=== PATIENT | female | born 1950 | race Hispanic/Latino ===

== ENCOUNTER 2016-07-03 12:52 | Emergency (ER) | payer OTHER, MEDICARE ==
[~2016-07-03] VITALS: Ht 162.6 cm; Wt 73.9 kg
[2016-07-03 13:15] VITALS: BP 108/69
--- NOTE | 2016-07-03 13:24 | ED UPPER/LOWER EXTREMITY COMPL ---
History of Present Illness General Chief Complaint: Lower Extremity Problems Stated Complaint: RIGHT KNEE PAIN, NKI Source: patient Exam Limitations: no limitations Vital Signs & Intake/Output Vital Signs & Intake/Output Vital Signs Date Time Temp Pulse Resp B/P Pulse O2 O2 Flow FiO2 Ox Delivery Rate 07/03 1433 99.6 07/03 1315 99.6 74 18 108/69 99 Room Air Allergies Coded Allergies: No Known Allergies (07/03/16) Reconcile Medications Naproxen 375 MG TABLET 1 TAB PO BID PRN PAIN with food Triage Note: RECEIVED 66 YO FEMALE C/O RIGHT KNEE PAIN, STARTED MONDAY GETTING OUT OF THE CAR. PAIN INCREASES WITH WEIGHT BEARING. PT ABLE TO WEIGHT BEAR, PAIN WORSE WHEN SHE PUT WEIGHT ON R HEEL, PAIN RADIATED FROM KNEE DOWN TO LOWER EXTREMITY. Triage Nurses Notes Reviewed? yes Onset: Abrupt Duration: constant Timing: recent history Severity: severe Severity Numbers: 7 HPI: Patient is a 66-year-old female who presents emergency and that yesterday while trying to get out of her car and standing up she had acute onset of right generalized localized knee pain. Patient states that walking and weightbearing makes worse. Patient has not taken medications for symptoms. Denies any knee pain or ankle pain. Denies any significant history of knee surgeries or injuries. Patient did drive to the emergency room here (TOBIN CASTRO) Past History Travel History Traveled to [place] past 21 day No Medical History Any Pertinent Medical History? see below for history Neurological: migraine EENT: NONE Cardiovascular: NONE Respiratory: NONE Gastrointestinal: NONE Hepatic: NONE Renal: NONE Musculoskeletal: NONE Psychiatric: NONE Endocrine: NONE Blood Disorders: NONE Cancer(s): NONE Surgical History Surgical History: non-contributory Psychosocial History What is your primary language Italian Tobacco Use: Never used Family History Hx Contributory? No (TOBIN CASTRO) Review of Systems Review of Systems Constitutional: Reports: no symptoms. EENTM: Reports: no symptoms. Respiratory: Reports: no symptoms. Cardiovascular: Reports: no symptoms. Gastrointestinal/Abdominal: Reports: no symptoms. Genitourinary: Reports: no symptoms. Musculoskeletal: Reports: see HPI, joint pain. Skin: Reports: no symptoms. Neurological/Psychological: Reports: no symptoms. Hematologic/Endocrine: Reports: no symptoms. Immunological: Reports: no symptoms. All Other Systems: Reviewed and Negative (TOBIN CASTRO) Physical Exam Physical Exam General Appearance: no apparent distress, comfortable Neurologic/Tendon: normal sensation, normal motor functions, normal tendon functions, responds to pain, no evidence tendon injury, no pulse deficit Skin: intact, normal color, warm/dry Comments: Well-developed well-nourished no apparent distress. HEENT: Atraumatic, extraocular motion intact Neck: Supple, no lymphadenopathy Back: Nontender Respiratory: No respiratory distress Extremities: Right hip normal inspection nontender full active range of motion Right knee noted generalized swelling and joint line point tenderness Full active range of motion noted negative valgus stress test negative varus stress test negative anterior drawer test negative posterior drawer test Right ankle normal inspection nontender Right lower extremity dermatomes intact pedal pulse +2 Neuro: Alert and oriented x3 Psych: Mood affect normal, normal memory normal judgment. (TOBIN CASTRO) Progress Differential Diagnosis: arterial insufficiency, compartment syndrome, contusion, dislocation, DVT, fracture, gout, septic arthritis, sprain, tendon injury Plan of Care: Orders Procedure Date/time Status Durable Medical Equipment 07/03 1425 Active No osseous injury noted on x-rays Farooq wrap was placed to right knee, PRE/Post neurovascular was intact patient also was advised on crutches for weightbearing as tolerated status. Patient was strongly advised to follow up with orthopedic doctor (TOBIN CASTRO) Diagnostic Imaging: Viewed by Me: Radiology Read. Radiology Impression: no fracture Comments: PATIENT: JESSENIA CORRAL PRESENT AGE: 66 PATIENT ACCOUNT NO: [id number] : 48 LOCATION: [facility] ORDERING PHYSICIAN: TOBIN SINCLAIR SERVICE DATE: 07/03/16 EXAM TYPE: RAD - XRY-KNEE, RIGHT EXAMINATION: XR KNEE, RIGHT CLINICAL INFORMATION: Right knee pain. COMPARISON: None TECHNIQUE: AP, lateral, tunnel, and sunrise views of the right knee. FINDINGS: Mild tricompartmental degenerative arthritis is characterized by small marginal osteophytes. Subchondral cystic changes are likely present at the patella. Bones are osteopenic. No fracture or malalignment. No joint effusion. Varicose veins are present on the subcutaneous soft tissues. IMPRESSION: 1. Mild tricompartmental degenerative arthritis. 2. No acute osseous abnormalities. (TOBIN CASTRO) Departure Departure Disposition: HOME OR SELF CARE Condition: Stable Clinical Impression Primary Impression: Right knee pain Referrals: TABATHA PETE,SHARONDA GARCIA MD,SCOT R. Additional Instructions: As discussed begin icing the area directly 20 minutes every 2 hours, begin using the Farooq wrap for swelling begin USING THE crutches for partial weightbearing to take pressure off THE right knee. Begin the prescription Naprosyn for pain and inflammation. If no better in 5 days follow-up with orthopedic Dr. Malnoe. If symptoms worsen return to emergency room. Departure Forms: Customer Survey General Discharge Information Prescriptions: Current Visit Scripts Naproxen 1 TAB PO BID PRN PAIN #15 TAB with food (TOBIN CASTRO) PA/REHABILITATION COUNSELLOR Co-Sign Statement Statement: ED Attending supervision documentation- [X] I saw and evaluated the patient. I have also reviewed all the pertinent lab results and diagnostic results. I agree with the findings and the plan of care as documented in the PA's/REHABILITATION COUNSELLOR's documentation. [X] I have reviewed the ED Record and agree with the PA's/REHABILITATION COUNSELLOR's documentation. [] Additions or exceptions (if any) to the PAs/REHABILITATION COUNSELLOR's note and plan are summarized below: [] (MONICA PETE,DESHAWN)
--- NOTE | 2016-07-03 14:18 | RADIOLOGY REPORT ---
EXAMINATION: XR KNEE, RIGHT CLINICAL INFORMATION: Right knee pain. COMPARISON: None TECHNIQUE: AP, lateral, tunnel, and sunrise views of the right knee. FINDINGS: Mild tricompartmental degenerative arthritis is characterized by small marginal osteophytes. Subchondral cystic changes are likely present at the patella. Bones are osteopenic. No fracture or malalignment. No joint effusion. Varicose veins are present on the subcutaneous soft tissues. IMPRESSION: 1. Mild tricompartmental degenerative arthritis. 2. No acute osseous abnormalities.
[2016-07-03] MEDS ORDERED: NAPROXEN375 M2 PO (14:25)
== END 2016-07-03 14:32 ==
LOC: ERH 12:52
DX: M25.561 Pain in right knee (principal)
CPT/HCPCS: 73560-RT